=== PATIENT | female | born 1960 | race Caucasian/White ===

== ENCOUNTER 2017-08-27 00:06 | Emergency (ER) | payer OTHER ==
[~2017-08-27] VITALS: Ht 170.1 cm; Wt 68.0 kg
--- NOTE | ~2017-08-27 | EKG ---
[place], [place] ELECTROCARDIOGRAM REPORT NAME: LAWRENCE BAZAN UNIT #: [id number] ROOM: DOCTOR: EPIPHANY DRAFT REPORT BIRTHDATE: [birth year] [facility] Test Date: 2017-08-27 Test Time: 03:11:13 Pat Name: LAWRENCE BAZAN Department: Patient ID: ELOH- Room: Gender: F [employer]: 52 : 1960 Requested By: RAFAEL LIZARRAGA Order Number: [id number] Reading MD: Measurements Intervals [place] Rate: 78 P: 73 ND: 138 QRS: 70 QRSD: 103 T: 9 QT: 428 QTc: 488 Interpretive Statements Sinus rhythm Consider right atrial enlargement Left ventricular hypertrophy Borderline T abnormalities, inferior leads ST elevation, consider anterior injury Borderline prolonged QT interval No previous ECG available for comparison CM:EKGRPT:ELECTROCARDIOGRAM REPORT 0311 0014 RAFAEL LIZARRAGA MD [facility] DRAFT REPORT RAFAEL LIZARRAGA MD
--- NOTE | ~2017-08-27 | EKG ---
[place], [place] ELECTROCARDIOGRAM REPORT NAME: LAWRENCE BAZAN UNIT #: [id number] ROOM: DOCTOR: EPIPHANY DRAFT REPORT BIRTHDATE: [birth year] [facility] Test Date: 2017-08-27 Test Time: 00:14:37 Pat Name: LAWRENCE BAZAN Department: Patient ID: ELOH- Room: Gender: F [employer]: : 1960 Requested By: RAFAEL LIZARRAGA Order Number: [id number] Reading MD: Measurements Intervals [place] Rate: 83 P: 79 MN: 133 QRS: 78 QRSD: 107 T: -17 QT: 403 QTc: 474 Interpretive Statements Sinus rhythm Biatrial enlargement Left ventricular hypertrophy Nonspecific T abnormalities, inferior leads No previous ECG available for comparison CM:EKGRPT:ELECTROCARDIOGRAM REPORT 0014 [facility] RAFAEL LIZARRAGA MD
[2017-08-27 00:28] LABS: BASO # 0.1 10*3/uL (0.0-0.1); BASO % 0.7 % (0.0-1.0); EOS # 0.1 10*3/uL (0.0-0.4); EOS % 1.6 % (1.0-4.0); HEMATOCRIT 42.1 % (37.0-47.0); HEMOGLOBIN 14.2 g/dl (12.0-16.0); LYMPH # 2.5 10*3/uL (1.3-4.4); LYMPH % 35.9 % (27.0-41.0); MEAN CELL VOLUME 97.2 fl (81.0-99.0); MEAN CORPUSCULAR HGB 32.8 pg (27.0-31.0); MEAN CORPUSCULAR HGB CONC 33.7 g/dl (33.0-37.0); MEAN PLATELET VOLUME 11.5 fl (9.6-12.3); MONO # 0.5 10*3/uL (0.1-1.0); MONO % 7.5 % (3.0-9.0); NEUT # 3.7 10*3/uL (2.3-7.9); NEUT % 54.2 % (47.0-73.0); PLATELET COUNT AUTOMATED 178 10*3/uL (130-400); RED BLOOD COUNT 4.33 10*6/uL (4.10-5.10); RED CELL DISTRI WIDTH 12.5 % (0-14.5); WHITE BLOOD COUNT 6.9 10*3/uL (4.8-10.8)
[2017-08-27 00:38] LABS: ACT PARTIAL THROMBO TIME 22.4 SECONDS (20.8-31.5); INTERNATIONAL NORM RATIO 0.9 (2.0-3.5)
[2017-08-27 00:45] LABS: ALBUMIN 3.9 gm/dl (3.1-4.5); ALKALINE PHOSPHATASE 66 U/L (45-117); BUN 15 mg/dl (7-24); CHLORIDE 104 mmol/L (98-107); CREATININE 0.99 mg/dL (0.55-1.02); POTASSIUM 3.5 mmol/L (3.5-5.1); SGOT/AST 17 IU/L (3-35); SGPT/ALT 27 U/L (12-78); SODIUM 141 mmol/L (136-145); TOTAL PROTEIN 8.4 gm/dL (6.4-8.2)
[2017-08-27 00:46] LABS: TROPONIN I < 0.015 ng/ml (<0.045)
[2017-08-27 03:07] LABS: BILIRUBIN NEGATIVE (NEGATIVE); BLOOD NEGATIVE (NEGATIVE); CLARITY CLEAR (CLEAR); COLOR YELLOW (YELLOW); GLUCOSE NEGATIVE (NEGATIVE); KETONE NEGATIVE (NEGATIVE); LEUKO ESTERASE NEGATIVE (NEGATIVE); NITRITE NEGATIVE (NEGATIVE); SPECIFIC GRAVITY <= 1.005 (1.005-1.030); UROBILINOGEN 0.2 E.U./dl (0.2-1.0)
[2017-08-27 03:14] LABS: EPITHELIAL CELLS 0-2
[2017-08-27] MEDS ORDERED: Zofran4 MG PO (04:09)
[2017-08-27] MEDS ORDERED: NORCO 5-325 TA1 EACH PO (04:09)
[2017-08-27] MEDS ORDERED: REGLAN5 MG PO (04:09)
== END 2017-08-27 04:35 | disposition home or self-care (01) ==
LOC: ED 00:06
PROVIDERS: Emergency Medicine Emergency Medical Services
DX: K80.50 Calculus of bile duct without cholangitis or cholecystitis without obstruction (principal); R06.02 Shortness of breath